=== PATIENT | female | born 1955 | race Caucasian/White ===

== ENCOUNTER 2023-04-28 12:47 | Emergency (ER) | payer OTHER, BC ==
[2023-04-28] MEDS ORDERED: DIPHTH,PERTUSS(ACELL),TET 0.5 ML DISP.SYRIN IM ONE ×2 (13:02→13:04)
[2023-04-28 13:11] VITALS: BP 179/110; PULSE 80; RESP 16; TEMP 98.2; BMI 32.4
== END 2023-04-28 13:33 | disposition home or self-care (01) ==
LOC: FER 12:47
PROC: 0HQGXZZ Repair Left Hand Skin, External Approach (ICD-10-PCS; principal; 2023-04-28)
PROC: 3E0234Z Introduction of Serum, Toxoid and Vaccine into Muscle, Percutaneous Approach (ICD-10-PCS; 2023-04-28)
DX: S61.213A Laceration without foreign body of left middle finger without damage to nail, initial encounter (principal); W27.5XXA Contact with paper-cutter, initial encounter
CPT/HCPCS: 12001-25; 90471; 90715; 99282-25